=== PATIENT | female | born 1995 | race Caucasian/White ===

== ENCOUNTER 2021-10-15 18:24 | Emergency (ER) | payer OTHER ==
[2021-10-15] MEDS ORDERED: BACTRIM DS TAB1 EACH PO (21:11)
[2021-10-15] MEDS ORDERED: CEPHALEXIN500 M1 PO (21:11)
== END 2021-10-15 21:35 | disposition home or self-care (01) ==
LOC: ER1 18:24
DX: L02.414 Cutaneous abscess of left upper limb (principal); F15.10 Other stimulant abuse, uncomplicated; F17.210 Nicotine dependence, cigarettes, uncomplicated
CPT/HCPCS: 10060; 87070; 87077; 87186; 87205; 99282

== ENCOUNTER 2021-10-30 23:03 | Emergency (ER) | payer OTHER ==
[~2021-10-30 23:03] MED LIST: BACTRIM DS TAB1 EACH PO; CEPHALEXIN500 M1 PO
[2021-10-30 23:57] LABS: HEMOGLOBIN 12.9 gm/dl (12.3-15.3); RED BLOOD COUNT 4.27 M/UL (4.00-5.10); WHITE BLOOD COUNT 8.8 K/UL (4.5-11.0)
[2021-10-31 00:12] LABS: BUN/CREATININE RATIO 35 (0-10)
[2021-10-31] MEDS ORDERED: SENNA8.6 MG PO (02:55)
[2021-10-31] MEDS ORDERED: ADULT GLYCERIN1 EACH PR (02:55)
[2021-10-31] MEDS ORDERED: BENTYL 10MG CAP10 MG PO (02:55)
== END 2021-10-31 03:38 | disposition home or self-care (01) ==
LOC: ER1 23:03
PROVIDERS: Student in an Organized Health Care Education/Training Program
DX: K59.00 Constipation, unspecified (principal); F17.210 Nicotine dependence, cigarettes, uncomplicated
CPT/HCPCS: 74019; 80053; 81001; 84703; 85025; 99284